=== PATIENT | male | born 1995 | race Hispanic/Latino ===

== ENCOUNTER 2021-06-01 15:51 | Emergency (ER) | payer OTHER ==
[2021-06-01 16:39] LABS: #Basophils 0.1 thou/uL (0.0-0.2); #Eosinphils 0.1 thou/uL (0.0-0.7); #Monocytes 0.8 thou/uL (0.11-0.59); #Neutrophils 10.2 thou/uL (1.40-6.50); %Basophils 0.7 % (0.0-1.0); %Eosinophils 0.8 % (0.0-10.0); %Lymphocytes 15.2 % (21.0-51.0); %Monocytes 5.9 % (0.0-10.0); %Neutrophils 77.4 % (42.0-75.0); Hemoglobin 15.3 g/dL (14.0-18.0); Mean Corpuscular HGB CONC 30.4 g/dL (32.0-36.0); Mean Corpuscular Hemoglobin 23.8 pg (27.0-31.0); Mean Corpuscular Volume 78.4 fL (78.0-98.0); Mean Platelet Volume 8.6 fL (7.4-10.4); Platelet Count 359 thou/uL (130-400); RBC Distribution Width 12.8 % (11.5-14.5); Red Blood Cell (RBC) Count 6.42 mill/uL (4.70-6.10); White Blood Cell (WBC) Count 13.2 thou/uL (4.8-10.8)
[2021-06-01 16:51] LABS: ALT (SGPT) 29 U/L (8-55); AST (SGOT) 22 U/L (5-34); Albumin 3.8 g/dL (3.5-5.0); Alkaline Phosphatase 134 U/L (40-110); Anion Gap 14 mmol/L (10-20); BUN (Urea Nitrogen) 14 mg/dL (8.9-20.6); Bilirubin, Total 0.5 mg/dL (0.2-1.2); Calc. Creatinine Clearance 0 mL/min (70-130); Calcium 9.5 mg/dL (7.8-10.44); Carbon Dioxide 25 mmol/L (22-29); Chloride 102 mmol/L (98-107); Globulin 4.7 g/dL (2.4-3.5); Glucose 91 mg/dL (70-105); Protein, Total 8.5 g/dL (6.0-8.3); Sodium 137 mmol/L (136-145)
[2021-06-01 18:08] LABS: Bilirubin Negative (Negative); Blood, Urine Moderate (Negative); Glucose, Urine (Dipstick) Negative (Negative); Ketone, Urine Negative (Negative); Leukocyte Small (Negative); Nitrite Positive (Negative); Protein, Urine (Dipstick) Negative (Neg-Trace); Specific Gravity, Urine 1.015 (1.005-1.030); pH, Urine 8.5 (5.0-9.0)
[2021-06-01 18:17] LABS: Clarity SL HAZY (Clear)
[2021-06-01 18:31] LABS: Bacteria/HPF 4+ HPF (None Seen); Mucous/LPF 1+ LPF (<2+); RBC/HPF 0-3 HPF (0-3); Squamous Epithelial 0-3 HPF (0-3); WBC/HPF 0-3 HPF (0-3)
[2021-06-01] MEDS ORDERED: Cefepime 2 GM VIAL ONE (18:56)
[2021-06-01] MEDS ORDERED: Sodium Chloride 0.9% 100 ML ONE (18:57)
[2021-06-01] MEDS ORDERED: Sodium Chloride 0.9% 1,000 ML ONE (19:07)
[2021-06-01] MEDS ORDERED: Sodium Chloride 0.9% 500 ML ONE (19:49)
[2021-06-01] MEDS ORDERED: Lorazepam 2 MG/ML VIAL ONE (20:54)
[2021-06-01] MEDS ORDERED: Ondansetron PF 4 MG/2 ML Vial ONE (21:54)
[2021-06-01] MEDS ORDERED: Morphine 4 MG/ML VIAL ONE (21:54)
== END 2021-06-01 22:10 | disposition short-term general hospital (02) ==
LOC: NAV ERS 15:51
DX: N39.0 Urinary tract infection, site not specified (principal); R53.81 Other malaise; R60.0 Localized edema; L08.89 Other specified local infections of the skin and subcutaneous tissue; R00.0 Tachycardia, unspecified
CPT/HCPCS: 51701; 71045; 80053; 81003; 81015; 83605; 85025; 87040; 87077; 87086; 87186; 93005; 94760; 96365; 96367; 96375; J0692; J2060; J2270; J2405; J3370; J3490; J7030; J7050